=== PATIENT | female | born 1985 | race Caucasian/White ===

== ENCOUNTER 2016-09-22 18:31 | Emergency (ER) | payer OTHER ==
[~2016-09-22] VITALS: Ht 160 cm; Wt 72.5 kg
[2016-09-22 18:32] VITALS: BP 177/92; PULSE 113; RESP 15; TEMP 99.5; O2SAT 98
[2016-09-22] MEDS ORDERED: SODIUM CHLOR 0.9% 1000 ML INJ 1,000 ML IV SCH (19:23)
[2016-09-22] MEDS ORDERED: HYDR-3516 PO (19:27)
[2016-09-22] MEDS ORDERED: PROT40TA PO (19:27)
[2016-09-22] MEDS ORDERED: PERI8.6T PO (19:27)
[2016-09-22] MEDS ORDERED: [UNRECOGNIZED DRUG - CODE] PO (19:27)
[2016-09-22] MEDS ORDERED: GABA100C4 PO (19:27)
[2016-09-22] MEDS ORDERED: BENA25CA4 PO (19:27)
[2016-09-22] MEDS ORDERED: TIZA4TAB PO (19:27)
[2016-09-22] MEDS ORDERED: PROM12.54 PO (19:27)
[2016-09-22] MEDS ORDERED: PULM1SOL NEB (19:27)
[2016-09-22] MEDS ORDERED: ALBUAER3 INH (19:27)
[2016-09-22] MEDS ORDERED: BUSP10TA PO (19:27)
[2016-09-22] MEDS ORDERED: GABA600T PO (19:27)
[2016-09-22] MEDS ORDERED: HYDROmorphone HCL PF 2 MG/ML VIAL IVS ONE (19:30)
[2016-09-22] MEDS ORDERED: SODIUM CHLORIDE 0.9% FLUSH 10 ML FLUSH IV FLUSH PRN (19:30)
[2016-09-22] MEDS ORDERED: ONDANSETRON HCL 4 MG/2 ML VIAL IVP ONE (19:30)
--- NOTE | 2016-09-22 19:31 | PD ---
HPI . Right upper quadrant pain Chief Complaint: Abdominal Pain Time Seen by Provider: 19:18 Travel History International Travel<30 days: No Contact w/Intl Traveler<30days: No Traveled to known affect area: No History of Present Illness HPI This is a patient from out of town who has a history of cystic fibrosis who presents with the chief complaint of right upper quadrant pain associated with nausea and vomiting. She actually had the onset of her symptoms 3 days ago prior to leaving to come here for vacation. She has some leftover Phenergan and hydrocodone and has been using that and has felt pretty well. She ate some barbecue this evening and immediately had an exacerbation of her symptoms. Her reports that she has had this many times before and that she is generally treated in the emergency department with IV fluids, IV antibiotics and IV pain medication. She is generally discharged home. He states that there is really nothing that anybody can do for her other than fluids and symptomatic management. Her current pain level is 10/10. PFSH Past Medical History Asthma: Yes Cystic Fibrosis: Yes Respiratory: Yes Immunizations Current: Yes Pancreatitis: Yes Tetanus Vaccination: < 5 Years Influenza Vaccination: Yes ?: Not LMP: irregluar ( 6 months) : 0 Past Surgical History Cholecystectomy: Yes Endocrine Surgery: Yes (3 nerve blocks to pancreas) Genitourinary Surgery: Yes (bladder stretching) Oral Surgery: Yes (sinus) Other Surgery: Yes (left acl) Social History Alcohol Use: No Tobacco Use: No Substance Use: No Allergies-Medications (Allergen,Severity, Reaction): Coded Allergies: Contrast Media (Unverified Allergy, Mild, 09/22/16) Darvocet-N 100 (Unverified Allergy, Mild, 09/22/16) Levaquin (Unverified Allergy, Mild, 09/22/16) Morphine (Unverified Allergy, Mild, 09/22/16) Penicillin (Unverified Allergy, Mild, 09/22/16) Sulfa (Unverified Allergy, Mild, 09/22/16) Reported Meds & Prescriptions Reported Meds & Active Scripts Active Reported Simin-Colace (Sennosides-Docusate Sodium) 8.6-50 Mg Tab 2 Tab PO HS Hydrocodone-Acetaminophen 5-325 mg Tab 1 Tab PO Q6H PRN Pulmozyme Neb (Dornase Jesus) 1 Mg/Ml Amp 2.5 Mg NEB DAILY Proair Hfa 8.5 GM Inh (Albuterol Sulfate) 90 Mcg/Act Aer 2 Puff INH Q6H PRN 108 mcg/actuation Benadryl Allergy (Diphenhydramine HCl) 25 Mg Cap 2 Cap PO HS Promethazine (Promethazine HCl) 12.5 Mg Tab 25 Mg PO Q6H PRN Tizanidine (Tizanidine HCl) 4 Mg Tab 4 Mg PO HS Buspirone (Buspirone HCl) 10 Mg Tab 10 Mg PO TID Gabapentin 600 Mg Tab 600 Mg PO HS Gabapentin 100 Mg Cap 100 Mg PO DAILY Kalydeco (Ivacaftor) 150 Mg Tablet 1 Tab PO BID Protonix (Pantoprazole Sodium) 40 Mg Tab 40 Mg PO BID Review of Systems Except as stated in HPI: all other systems reviewed are Neg General / Constitutional: No: Fever, Chills Gastrointestinal: Positive: Nausea, Vomiting, Abdominal Pain Genitourinary: No: Urgency, Frequency, Dysuria Physical Exam Narrative GENERAL: Patient is awake and alert and in no acute distress. SKIN: Warm and dry. HEAD: Atraumatic. Normocephalic. EYES: Pupils equal and round. Sclera are anicteric. ENT: No nasal bleeding or discharge. Mucous membranes pink and moist. NECK: Trachea midline. Neck is supple. CARDIOVASCULAR: Regular rate and rhythm. Heart sounds are normal. RESPIRATORY: No accessory muscle use. Lungs are clear with full air movement throughout. GASTROINTESTINAL: Abdomen soft. Right upper quadrant and epigastric tenderness. No guarding or rebound. Bowel sounds are quiet. Nondistended. MUSCULOSKELETAL: No obvious deformities. No edema. NEUROLOGICAL: Awake and alert. No obvious cranial nerve deficits. Motor grossly within normal limits. Normal speech. PSYCHIATRIC: Appropriate mood and affect; insight and judgment normal. Data Data Last Documented VS Vital Signs Date Time Temp Pulse Resp B/P Pulse Ox O2 Delivery O2 Flow Rate FiO2 09/22/16 18:32 99.5 113 15 177/92 98 Orders Complete Blood Count With Diff (09/22/16 19:23) Comprehensive Metabolic Panel (09/22/16 19:23) Lipase (09/22/16 19:23) Iv Access Insert/Monitor (09/22/16 19:23) Ecg Monitoring (09/22/16 19:23) Oximetry (09/22/16 19:23) Hydromorphone Pf Inj (Dilaudid Pf Inj) (09/22/16 19:30) Ondansetron Inj (Zofran Inj) (09/22/16 19:30) Sodium Chlor 0.9% 1000 Ml Inj (Ns 1000 M (09/22/16 19:23) Sodium Chloride 0.9% Flush (Ns Flush) (09/22/16 19:30) Prochlorperazine Inj (Compazine Inj) (09/22/16 20:30) Diphenhydramine Inj (Benadryl Inj) (09/22/16 20:30) Non-Formulary Drug (09/22/16 21:30) Labs Laboratory Tests Test 09/22/16 19:52 White Blood Count 8.0 TH/MM3 Red Blood Count 4.96 MIL/MM3 Hemoglobin 14.0 GM/DL Hematocrit 40.4 % Mean Corpuscular Volume 81.6 FL Mean Corpuscular Hemoglobin 28.3 PG Mean Corpuscular Hemoglobin 34.7 % Concent Red Cell Distribution Width 13.8 % Platelet Count 301 TH/MM3 Mean Platelet Volume 7.5 FL Neutrophils (%) (Auto) 66.3 % Lymphocytes (%) (Auto) 23.4 % Monocytes (%) (Auto) 8.0 % Eosinophils (%) (Auto) 2.0 % Basophils (%) (Auto) 0.3 % Neutrophils # (Auto) 5.3 TH/MM3 Lymphocytes # (Auto) 1.9 TH/MM3 Monocytes # (Auto) 0.6 TH/MM3 Eosinophils # (Auto) 0.2 TH/MM3 Basophils # (Auto) 0.0 TH/MM3 CBC Comment DIFF FINAL Differential Comment Sodium Level 141 MEQ/L Potassium Level 3.4 MEQ/L Chloride Level 107 MEQ/L Carbon Dioxide Level 24.5 MEQ/L Anion Gap 10 MEQ/L Blood Urea Nitrogen 11 MG/DL Creatinine 0.79 MG/DL Estimat Glomerular Filtration 84 ML/MIN Rate Random Glucose 103 MG/DL Calcium Level 9.6 MG/DL Total Bilirubin 0.2 MG/DL Aspartate Amino Transf 21 U/L (AST/SGOT) Alanine Aminotransferase 18 U/L (ALT/SGPT) Alkaline Phosphatase 48 U/L Total Protein 7.3 GM/DL Albumin 4.0 GM/DL Lipase 184 U/L [facility] Medical Decision Making Medical Screen Exam Complete: Yes Emergency Medical Condition: Yes Differential Diagnosis Differential diagnosis of abdominal pain includes but is not limited to gastritis, pancreatitis, hepatitis, gastroenteritis, gallbladder disease, constipation, urinary retention, UTI, peptic ulcer disease, diverticulitis or appendicitis Narrative Course Patient presents stating that she has a history of cystic fibrosis with frequent episodes of pancreatitis. She reports that she is usually treated with IV fluids and IV pain medications and analgesics. I have ordered IV fluids with IV Dilaudid and Zofran. Labs will be checked. CBC & BMP Diagram 09/22/16 19:52 LFTs and lipase are normal. The patient's symptoms are improving. She'll be discharged home. She states that she already has Phenergan. She needs some Lortab. Diagnosis Primary Impression: Abdominal pain Qualified Code: R10.11 - Right upper quadrant abdominal pain Additional Impression: Vomiting Qualified Code: R11.2 - Non-intractable vomiting with nausea, unspecified vomiting type Patient Instructions: Narcotic given in the ED Med/Other Pt SpecificInfo: Prescription(s) given Scripts Hydrocodone-Acetaminophen ([place])5-325 mg Tab1 Tab PO Q4H PRN (PAIN) #12 TAB Ref 0 Prov:Nery Boswell MD 09/22/16 Disposition: 01 DISCHARGE HOME Condition: Stable Nery Boswell MD Sep 22, 2016 19:31
[2016-09-22 20:29] LABS: AUTOMATED NEUTROPHIL # 5.3 TH/MM3 (1.8-7.7); BASOPHIL % 0.3 % (0.0-2.0); EOSINOPHIL # 0.2 TH/MM3 (0-0.4); HEMATOCRIT 40.4 % (35.0-46.0); HEMO FLAGS DIFF FINAL; LYMPH % 23.4 % (9.0-44.0); LYMPHOCYTE # 1.9 TH/MM3 (1.0-4.8); MEAN CELL VOLUME 81.6 FL (80.0-100.0); MEAN CORPUSCULAR HEMOGLOBIN 28.3 PG (27.0-34.0); MEAN CORPUSCULAR HGB CONC 34.7 % (32.0-36.0); NEUT % 66.3 % (16.0-70.0); PLATELET COUNT 301 TH/MM3 (150-450); RED BLOOD COUNT 4.96 MIL/MM3 (4.00-5.30); RED CELL DISTRIBUTION WIDTH 13.8 % (11.6-17.2)
[2016-09-22] MEDS ORDERED: diphenhydrAMINE HCL 50 MG/ML VIAL IV PUSH ONE (20:30)
[2016-09-22] MEDS ORDERED: PROCHLORPERAZINE INJ 10 MG/2 ML VIAL IV PUSH ONE (20:30)
[2016-09-22 20:38] LABS: ANION GAP 10 MEQ/L (5-15); AST (GOT) 21 U/L (15-37); BICARBONATE 24.5 MEQ/L (21.0-32.0); BLOOD UREA NITROGEN 11 MG/DL (7-18); CHLORIDE 107 MEQ/L (98-107); GLOMERULAR FILTRATION RATE 84 ML/MIN (>89); POTASSIUM 3.4 MEQ/L (3.5-5.1); SODIUM (NA) 141 MEQ/L (136-145)
[2016-09-22 20:40] LABS: ALKALINE PHOSPHATASE 48 U/L (45-117); ALT (GPT) 18 U/L (10-53); TOTAL BILIRUBIN ADULT 0.2 MG/DL (0.2-1.0)
[2016-09-22] MEDS ORDERED: NORC5TAB PO (21:30)
[2016-09-22] MEDS ORDERED: PHENERGAN 25 MG/ML IM ONE (21:30)
== END 2016-09-22 22:06 | disposition home or self-care (01) ==
LOC: NEPD 18:31
DX: R10.11 Right upper quadrant pain (principal); R11.2 Nausea with vomiting, unspecified; E84.9 Cystic fibrosis, unspecified
CPT/HCPCS: 80053; 83690; 85025; 96372; 96374; 96375; 99284; J1170; J1200; J2405; J7030